=== PATIENT | male | born 1955 | race Two or more races ===

== ENCOUNTER 2023-07-20 17:24 | Emergency (ER) | payer MEDICARE, MEDICAID ==
[~2023-07-20] VITALS: Ht 165.1 cm; Wt 79.5 kg
[2023-07-20 17:29] VITALS: TEMP 98.2
[2023-07-20] MEDS ORDERED: LIDOCAINE 1% 10 ML VIAL ONE (19:35)
[2023-07-20] MEDS ORDERED: CEPH-558 PO (20:02)
[2023-07-20] MEDS: CEPHALEXIN MONOHYDRATE 500 MG CAPSULE PO ONE (20:14)
[2023-07-20] MEDS: LIDOCAINE 1% 10 ML VIAL ID ONE (20:14)
[2023-07-20 20:19] VITALS: BP 147/94; PULSE 93; RESP 15
[2023-07-20] MEDS: BACITRACIN 0.9 GM PACKET OINTMENT TP ONE (20:30)
[2023-07-20] MEDS: NEOMYCIN/BACITRACIN/POLYMYXIN B OINTMENT PACKET TP ONE (20:48)
== END 2023-07-20 20:51 | disposition home or self-care (01) ==
LOC: EMS 17:31
DX: S60.551A Superficial foreign body of right hand, initial encounter (principal); E11.9 Type 2 diabetes mellitus without complications; I10 Essential (primary) hypertension; W45.8XXA Other foreign body or object entering through skin, initial encounter; Y93.89 Activity, other specified; Y92.89 Other specified places as the place of occurrence of the external cause; Y99.8 Other external cause status
CPT/HCPCS: 99284; 10120; 82962; 73120; J3490